=== PATIENT | female | born 1980 | race Caucasian/White ===

== ENCOUNTER 2017-10-20 18:49 | Emergency (ER) | payer MEDICAID ==
[~2017-10-20] VITALS: Ht 154.9 cm; Wt 106.6 kg
[2017-10-20 19:01] VITALS: BP_SYST 160
[2017-10-20 19:37] LABS: BILIRUBIN,URINE NEGATIVE (NEGATIVE); CLARITY/URINE SL HAZY (CLEAR); COLOR,URINE YELLOW (YELLOW); GLUCOSE,URINE NEGATIVE (NEGATIVE); KETONES,URINE NEGATIVE (NEGATIVE); LEUKOCYTE ESTERASE ,URINE NEGATIVE (NEGATIVE); NITRITE, URINE NEGATIVE (NEGATIVE); PROTEIN URINE NEGATIVE (NEGATIVE); UROBILINOGEN,URINE 0.2 (0.2-1.0)
[2017-10-20 19:39] LABS: BLOOD, URINE TRACE (NEGATIVE)
[2017-10-20 19:52] LABS: BACTERIA,URINE FEW /HPF (None Seen); MUCUS,URINE 2+ /LPF (None Seen); RBC,URINE 0-3 /HPF (0-3); WBC,URINE 0-3 /HPF (0-3)
[2017-10-20 20:34] VITALS: BP_SYST 160
== END 2017-10-20 20:34 | disposition home or self-care (01) ==
LOC: SED 18:49
DX: N76.5 Ulceration of vagina (principal)
CPT/HCPCS: 81000-TC; 81025; 87252; 99284